=== PATIENT | male | born 1960 | race Caucasian/White ===

== ENCOUNTER 2017-05-09 03:09 | Inpatient (IN) | payer OTHER ==
[~2017-05-09] VITALS: Ht 162.6 cm; Wt 85.9 kg
[~2017-05-09 03:09] MED LIST: ATOR20 PO; CARI350 PO; CARV6.25 PO; CLON.5 PO; DIVA250ER PO; DIVA500ER PO; FURO20 PO; HYDACE5 PO; LANOXIN125 MCG PO; LISI5 PO; METF500C PO; OLAN10; OXYACE5T PO; PANT40 PO; QUET200 PO; QUET300 PO; RANI150; RANI150 PO; RXOXYACE PO; Seroquel Xr50 MG PO; TRAM50 PO; ZOLP5 PO
[2017-05-09 03:47] LABS: BASOPHILS ABSOLUTE AUTO 0.03 K/mm3 (0.00-0.23); BASOPHILS PERCENT AUTO 0 % (0-2); EOSINOPHILS ABSOLUTE AUTO 0.37 K/mm3 (0.00-0.68); EOSINOPHILS PERCENT AUTO 4 % (0-6); Hematocrit 37.1 % (37.0-53.0); Hemoglobin 12.6 g/dL (13.5-17.5); IMMATURE GRAN ABSOLUTE AUTO 0.02 K/mm3 (0.00-0.10); IMMATURE GRAN PERCENT AUTO 0 % (0-1); LYMPHOCYTES ABSOLUTE AUTO 2.76 K/mm3 (0.84-5.20); LYMPHOCYTES PERCENT AUTO 30 % (21-46); MONOCYTES PERCENT AUTO 10 % (4-13); Mean Corpuscular HGB 31.1 pg (26.0-34.0); Mean Corpuscular Volume 92 fL (80-100); Mean Platelet Volume 10.2 fL (9.1-12.4); NEUTROPHILS ABSOLUTE AUTO 5.05 K/mm3 (1.96-9.15); NEUTROPHILS PERCENT AUTO 55 % (41-73); Platelet Count 247 K/mm3 (150-400); Red Blood Cell Count 4.05 M/mm3 (4.30-5.90); White Blood Cell Count 9.13 K/mm3 (4.00-11.30)
[2017-05-09 04:09] LABS: Troponin I <0.015 ng/mL (0.000-0.040)
[2017-05-09 04:11] LABS: Alanine Aminotransfer (ALT/SGP 40 U/L (12-78); Albumin, Blood 3.4 g/dL (3.4-5.0); Alk Phos 67 U/L (50-136); Anion Gap 8 mmol/L (6-16); Aspartate Aminotrans (AST/SGOT 31 U/L (12-37); Bilirubin, Total 0.6 mg/dL (0.1-1.0); Blood Urea Nitrogen 18 mg/dL (8-24); Bun/Creatinine Ratio 26.5 (12.0-20.0); CO2, Blood 27 mmol/L (21-32); Chloride, Blood 104 mmol/L (98-108); Creatinine, Blood 0.68 mg/dL (0.60-1.20); Globulin, Blood 3.3 g/dL (2.2-4.0); Glomerular Filtration Rate >60 (60-); Glucose, Blood 124 mg/dL (70-99); Potassium, Blood 4.1 mmol/L (3.5-5.5); Sodium, Blood 139 mmol/L (136-145); Total Protein, Blood 6.7 g/dL (6.4-8.2)
[2017-05-09 05:43] LABS: Free Thyroxine 0.87 ng/dL (0.70-1.60)
[2017-05-09 05:50] LABS: Digoxin (Lanoxin) 0.09 ug/mL (0.80-2.00); Triiodothyronine, Free 3.28 pg/mL (2.18-3.98)
[2017-05-09 13:02] LABS: Source, Urine Clean Catch
[2017-05-09 13:24] LABS: Bilirubin, Urine Neg (Neg); Blood, Urine Neg (Neg); Glucose Qualitative, Urine Neg (Neg); Ketones, Urine Neg (Neg); Leukocyte Esterase, Urine Neg (Neg); Nitrite, Urine Neg (Neg); Protein, Urine Neg (Neg); Urobilinogen, Urine NORM (Normal); pH, Urine 6.5 (5.0-8.0)
[2017-05-09 13:54] LABS: U Amphetamine Screen Not Detected; U Barbituate Screen Not Detected; U Benzodiazapine Screen Not Detected; U Cannabinoids Screen Not Detected; U Cocaine Screen Not Detected; U Methadone Screen Not Detected; U Methamphetamine Screen Not Detected; U Opiates Screen Not Detected; U Phencyclidine Screen Not Detected
[2017-05-09 13:55] LABS: U Buprenorphine Screen Not Detected; U Oxycodone Screen Not Detected; U Propoxyphene Screen Not Detected
[2017-05-09 15:19] LABS: Appearance, Urine Clear (Clear); Color, Urine Yellow (P-Yellow)
[2017-05-11 05:45] LABS: BASOPHILS ABSOLUTE AUTO 0.07 K/mm3 (0.00-0.23); BASOPHILS PERCENT AUTO 1 % (0-2); EOSINOPHILS ABSOLUTE AUTO 0.45 K/mm3 (0.00-0.68); EOSINOPHILS PERCENT AUTO 5 % (0-6); Hematocrit 38.4 % (37.0-53.0); Hemoglobin 12.9 g/dL (13.5-17.5); IMMATURE GRAN ABSOLUTE AUTO 0.04 K/mm3 (0.00-0.10); IMMATURE GRAN PERCENT AUTO 1 % (0-1); LYMPHOCYTES ABSOLUTE AUTO 3.89 K/mm3 (0.84-5.20); LYMPHOCYTES PERCENT AUTO 44 % (21-46); MONOCYTES ABSOLUTE AUTO 0.82 K/mm3 (0.16-1.47); MONOCYTES PERCENT AUTO 9 % (4-13); Mean Corpuscular HGB 30.9 pg (26.0-34.0); Mean Corpuscular HGB Conc 33.6 g/dL (31.5-36.5); Mean Corpuscular Volume 92 fL (80-100); Mean Platelet Volume 10.1 fL (9.1-12.4); NEUTROPHILS ABSOLUTE AUTO 3.59 K/mm3 (1.96-9.15); NEUTROPHILS PERCENT AUTO 40 % (41-73); Platelet Count 241 K/mm3 (150-400); RDW Coefficient Variation 12.7 % (11.7-14.2); RDW Standard Deviation 42.9 fL (35.1-46.3); Red Blood Cell Count 4.17 M/mm3 (4.30-5.90); White Blood Cell Count 8.86 K/mm3 (4.00-11.30)
[2017-05-11 06:12] LABS: Anion Gap 6 mmol/L (6-16); Blood Urea Nitrogen 24 mg/dL (8-24); Bun/Creatinine Ratio 29.3 (12.0-20.0); CO2, Blood 29 mmol/L (21-32); Calcium, Blood 8.2 mg/dL (8.5-10.1); Chloride, Blood 104 mmol/L (98-108); Creatinine, Blood 0.82 mg/dL (0.60-1.20); Glomerular Filtration Rate >60 (60-); Glucose, Blood 92 mg/dL (70-99); Potassium, Blood 3.9 mmol/L (3.5-5.5); Sodium, Blood 139 mmol/L (136-145)
[2017-05-11 06:21] LABS: Digoxin (Lanoxin) 0.39 ug/mL (0.80-2.00)
[2017-05-12] MEDS ORDERED: DILT30 PO (11:58)
[2017-05-12] MEDS ORDERED: METO25ER PO (12:00)
[2017-05-12] MEDS ORDERED: XARELTO20 MG PO (12:02)
[2017-09-25] MEDS ORDERED: CYCL10 PO (13:57)
[2017-09-25] MEDS ORDERED: Norco 5-325 Ta1 EACH PO (13:57)
[2018-02-12] MEDS ORDERED: OLAN5 PO (17:03)
[2018-02-12] MEDS ORDERED: LIDO700A20 TOP (18:29)
[2018-02-12] MEDS ORDERED: ACETAMINOPHEN500 MG PO (18:29)
[2018-02-19] MEDS ORDERED: GABA100 (14:37)
[2018-02-19] MEDS ORDERED: QUET100 (14:37)
== END 2017-05-12 15:20 | disposition home or self-care (01) | DRG 309 ==
LOC: ER 03:09 → MEDS 03:10 → ER 03:28 → MEDS 03:49 → ENPENDDIS 05-12 10:45 → MEDS 05-12 15:20
PROVIDERS: Emergency Medicine; Family Medicine; Internal Medicine
DX: I48.91 Unspecified atrial fibrillation (principal); I50.32 Chronic diastolic (congestive) heart failure; I95.9 Hypotension, unspecified; E11.9 Type 2 diabetes mellitus without complications; F43.10 Post-traumatic stress disorder, unspecified; D64.9 Anemia, unspecified; Z79.84 Long term (current) use of oral hypoglycemic drugs; Z79.899 Other long term (current) drug therapy; Z87.891 Personal history of nicotine dependence
CPT/HCPCS: 36415; 71046; 74176; 80048; 80053; 80162; 81003; 82947; 83880; 84439; 84443; 84481; 84484; 85025; 85379; 93005; 93010; 93306; 97161; 99285; G0378; G8978; G8979; G8980; J7120

== ENCOUNTER 2017-09-23 07:39 | Emergency (ER) | payer OTHER ==
[~2017-09-23] VITALS: Ht 162.6 cm; Wt 104.3 kg
[~2017-09-23 07:39] MED LIST changes: +DILT30 PO; +METO25ER PO; +XARELTO20 MG PO
[2017-09-23] MEDS ORDERED: Naprosyn500 MG PO (08:27)
[2017-09-23] MEDS ORDERED: Seroquel400 MG PO (08:27)
[2017-09-25] MEDS ORDERED: Norco 5-325 Ta1 EACH PO (13:57)
[2017-09-25] MEDS ORDERED: CYCL10 PO (13:57)
== END 2017-09-23 08:55 | disposition home or self-care (01) ==
LOC: ER 07:39
DX: M54.5 Low back pain (principal); I11.0 Hypertensive heart disease with heart failure; I50.9 Heart failure, unspecified; Z79.899 Other long term (current) drug therapy; Z79.84 Long term (current) use of oral hypoglycemic drugs
CPT/HCPCS: 96372; 99283; J1885

== ENCOUNTER 2017-09-28 07:41 | Emergency (ER) | payer OTHER ==
[~2017-09-28] VITALS: Ht 162.6 cm; Wt 87.5 kg
[~2017-09-28 07:41] MED LIST changes: +CYCL10 PO; +Naprosyn500 MG PO; +Norco 5-325 Ta1 EACH PO; +Seroquel400 MG PO
[2017-09-28 08:35] LABS: Calcium, Ionized (POC) 1.11 mmol/L (1.10-1.46); Chloride (POC) 102 mmol/L (98-108); Glucose (ISTAT POC) 200 mg/dL (70-99); Hemoglobin (POC) 12.6 g/dL (13.5-17.5); Potassium (POC) 4.6 mmol/L (3.5-5.5); Sodium (POC) 136 mmol/L (135-148); Total CO2 (POC) 18 mmol/L (21-32)
[2017-09-28] MEDS ORDERED: ATOR20 PO (09:56)
[2017-09-28] MEDS ORDERED: METO25ER PO (09:56)
[2017-09-28] MEDS ORDERED: Naprosyn500 MG PO (09:56)
[2017-09-28] MEDS ORDERED: XARELTO20 MG PO (09:56)
[2017-09-28] MEDS ORDERED: QUET300 PO (09:56)
[2017-09-28] MEDS ORDERED: LANOXIN125 MCG PO (09:56)
[2017-09-28] MEDS ORDERED: DILT30 PO (09:56)
[2017-09-28] MEDS ORDERED: Seroquel400 MG PO (09:56)
[2017-09-28] MEDS ORDERED: CYCL10 PO (09:56)
[2017-09-28] MEDS ORDERED: METF500C PO (09:56)
[2017-09-28] MEDS ORDERED: PANT40 PO (09:56)
[2017-09-28] MEDS ORDERED: DIVA500ER PO (09:56)
[2017-09-28] MEDS ORDERED: Norco 5-325 Ta1 EACH PO (09:57)
== END 2017-09-28 10:15 | disposition home or self-care (01) ==
LOC: ER 07:41
PROVIDERS: Physician Assistant
DX: M54.40 Lumbago with sciatica, unspecified side (principal); R10.9 Unspecified abdominal pain; G89.29 Other chronic pain; E66.9 Obesity, unspecified; F20.9 Schizophrenia, unspecified; Z68.33 Body mass index [BMI] 33.0-33.9, adult; Z79.899 Other long term (current) drug therapy; Z79.84 Long term (current) use of oral hypoglycemic drugs; Z79.1 Long term (current) use of non-steroidal anti-inflammatories (NSAID); Z59.0 Homelessness; Z87.891 Personal history of nicotine dependence
CPT/HCPCS: 80047; 85014; C9113; J2405

== ENCOUNTER 2017-10-02 07:32 | Inpatient (IN) | payer OTHER ==
[~2017-10-02] VITALS: Ht 162.6 cm; Wt 97.4 kg
[2017-10-02 09:05] LABS: Source, Urine Clean Catch
[2017-10-02 09:08] LABS: BASOPHILS ABSOLUTE AUTO 0.09 K/mm3 (0.00-0.23); BASOPHILS PERCENT AUTO 1 % (0-2); EOSINOPHILS ABSOLUTE AUTO 0.03 K/mm3 (0.00-0.68); EOSINOPHILS PERCENT AUTO 0 % (0-6); Hematocrit 37.9 % (37.0-53.0); Hemoglobin 12.2 g/dL (13.5-17.5); IMMATURE GRAN ABSOLUTE AUTO 0.57 K/mm3 (0.00-0.10); IMMATURE GRAN PERCENT AUTO 4 % (0-1); LYMPHOCYTES ABSOLUTE AUTO 1.73 K/mm3 (0.84-5.20); LYMPHOCYTES PERCENT AUTO 13 % (21-46); MONOCYTES PERCENT AUTO 10 % (4-13); Mean Corpuscular HGB 30.7 pg (26.0-34.0); Mean Corpuscular HGB Conc 32.2 g/dL (31.5-36.5); Mean Corpuscular Volume 96 fL (80-100); Mean Platelet Volume 11.4 fL (9.1-12.4); NEUTROPHILS ABSOLUTE AUTO 9.29 K/mm3 (1.96-9.15); NEUTROPHILS PERCENT AUTO 71 % (41-73); NRBC ABSOLUTE 0.23 K/mm3 (0.00-0.02); NRBC Auto 1.8 /100 WBC (0.0-0.2); Platelet Count 175 K/mm3 (150-400); RDW Coefficient Variation 14.6 % (11.7-14.2); RDW Standard Deviation 49.6 fL (35.1-46.3); Red Blood Cell Count 3.97 M/mm3 (4.30-5.90); White Blood Cell Count 13.01 K/mm3 (4.00-11.30)
[2017-10-02 09:09] LABS: Bilirubin, Urine Neg (Neg); Blood, Urine 1+ (Neg); Glucose Qualitative, Urine Neg (Neg); Ketones, Urine Neg (Neg); Leukocyte Esterase, Urine Neg (Neg); Nitrite, Urine Neg (Neg); Protein, Urine 2+ (Neg); Urobilinogen, Urine 1+ (Normal)
[2017-10-02 09:23] LABS: U Amphetamine Screen Not Detected; U Barbituate Screen Not Detected; U Benzodiazapine Screen Not Detected; U Buprenorphine Screen Not Detected; U Cannabinoids Screen Not Detected; U Cocaine Screen Not Detected; U Methadone Screen Not Detected; U Methamphetamine Screen Not Detected; U Opiates Screen Not Detected; U Oxycodone Screen Not Detected; U Phencyclidine Screen Not Detected; U Propoxyphene Screen Not Detected
[2017-10-02 09:47] LABS: Digoxin (Lanoxin) 0.06 ug/mL (0.80-2.00)
[2017-10-02 09:48] LABS: Appearance, Urine Clear (Clear); Color, Urine Yellow (P-Yellow)
[2017-10-02 09:49] LABS: Alanine Aminotransfer (ALT/SGP 3412 U/L (12-78); Albumin, Blood 3.3 g/dL (3.4-5.0); Alk Phos 153 U/L (50-136); Anion Gap 13 mmol/L (6-16); Aspartate Aminotrans (AST/SGOT 1569 U/L (12-37); Bilirubin, Total 3.7 mg/dL (0.1-1.0); Blood Urea Nitrogen 55 mg/dL (8-24); Bun/Creatinine Ratio 50.5 (12.0-20.0); CO2, Blood 17 mmol/L (21-32); Calcium, Blood 7.9 mg/dL (8.5-10.1); Chloride, Blood 95 mmol/L (98-108); Creatinine, Blood 1.09 mg/dL (0.60-1.20); Globulin, Blood 3.3 g/dL (2.2-4.0); Glomerular Filtration Rate >60 (60-); Glucose, Blood 133 mg/dL (70-99); Potassium, Blood 5.5 mmol/L (3.5-5.5); Sodium, Blood 125 mmol/L (136-145); Total Protein, Blood 6.6 g/dL (6.4-8.2)
[2017-10-02 09:52] LABS: Bacteria Not Seen /hpf; Red Blood Cells, Urine 0-2 /hpf (0-2); Squamous Epithelial Cells Few /hpf (Few); White Blood Cells, Urine Rare /hpf (0-5)
[2017-10-02 09:53] LABS: Mucus Light (0-Heavy)
[2017-10-02 10:42] LABS: Acetaminophen, Random <2.0 ug/mL (10.0-30.0)
[2017-10-02 11:07] LABS: International Normalized Ratio 2.72; Prothrombin Time Results 29.2 Sec (9.7-11.5)
[2017-10-02 11:14] LABS: Ethanol (Alcohol), Blood, Med <3 mg/dL
[2017-10-02 15:01] LABS: Valproic Acid <3.0 ug/mL (50.0-100.0)
[2017-10-02 15:07] LABS: CPK Creatine Kinase 177 U/L (39-308); Salicylate <1.7 mg/dL (2.8-20.0)
[2017-10-02 15:13] LABS: Troponin I 0.028 ng/mL (0.000-0.040)
[2017-10-02 15:18] LABS: Digoxin (Lanoxin) <0.06 ug/mL (0.80-2.00)
[2017-10-02 21:34] LABS: International Normalized Ratio 2.79; Prothrombin Time Results 29.9 Sec (9.7-11.5)
[2017-10-02 21:47] LABS: Troponin I 0.021 ng/mL (0.000-0.040)
[2017-10-03 04:40] LABS: Hematocrit 34.3 % (37.0-53.0); Hemoglobin 11.4 g/dL (13.5-17.5); Mean Corpuscular HGB 30.8 pg (26.0-34.0); Mean Corpuscular HGB Conc 33.2 g/dL (31.5-36.5); Mean Corpuscular Volume 93 fL (80-100); Mean Platelet Volume 11.3 fL (9.1-12.4); NRBC ABSOLUTE 0.13 K/mm3 (0.00-0.02); Platelet Count 159 K/mm3 (150-400); RDW Coefficient Variation 14.6 % (11.7-14.2); RDW Standard Deviation 48.7 fL (35.1-46.3)
[2017-10-03 04:48] LABS: International Normalized Ratio 2.44
[2017-10-03 04:57] LABS: Albumin, Blood 2.8 g/dL (3.4-5.0); Albumin/Globulin Ratio 0.9 (0.8-1.8); Alk Phos 125 U/L (50-136); Anion Gap 10 mmol/L (6-16); Aspartate Aminotrans (AST/SGOT 868 U/L (12-37); Bilirubin, Total 2.8 mg/dL (0.1-1.0); Blood Urea Nitrogen 36 mg/dL (8-24); Bun/Creatinine Ratio 45.7 (12.0-20.0); CO2, Blood 22 mmol/L (21-32); Calcium, Blood 7.7 mg/dL (8.5-10.1); Chloride, Blood 97 mmol/L (98-108); Creatinine, Blood 0.79 mg/dL (0.60-1.20); Globulin, Blood 3.2 g/dL (2.2-4.0); Glomerular Filtration Rate >60 (60-); Glucose, Blood 114 mg/dL (70-99); Potassium, Blood 4.1 mmol/L (3.5-5.5); Sodium, Blood 129 mmol/L (136-145)
[2017-10-03 05:00] LABS: Prothrombin Time Results 26.1 Sec (9.7-11.5)
[2017-10-03 05:04] LABS: Alanine Aminotransfer (ALT/SGP 2592 U/L (12-78)
[2017-10-03 22:46] LABS: Albumin, Blood 2.7 g/dL (3.4-5.0); Albumin/Globulin Ratio 0.8 (0.8-1.8); Bilirubin, Indirect 1.4 mg/dL (0.1-0.7); Bilirubin, Total 2.4 mg/dL (0.1-1.0); Globulin, Blood 3.5 g/dL (2.2-4.0); Total Protein, Blood 6.2 g/dL (6.4-8.2)
[2017-10-04 04:05] LABS: BASOPHILS ABSOLUTE AUTO 0.08 K/mm3 (0.00-0.23); BASOPHILS PERCENT AUTO 1 % (0-2); EOSINOPHILS ABSOLUTE AUTO 0.34 K/mm3 (0.00-0.68); EOSINOPHILS PERCENT AUTO 3 % (0-6); Hematocrit 35.7 % (37.0-53.0); Hemoglobin 11.6 g/dL (13.5-17.5); IMMATURE GRAN ABSOLUTE AUTO 0.58 K/mm3 (0.00-0.10); IMMATURE GRAN PERCENT AUTO 5 % (0-1); LYMPHOCYTES PERCENT AUTO 20 % (21-46); MONOCYTES ABSOLUTE AUTO 1.77 K/mm3 (0.16-1.47); MONOCYTES PERCENT AUTO 15 % (4-13); Mean Corpuscular HGB 30.4 pg (26.0-34.0); Mean Corpuscular HGB Conc 32.5 g/dL (31.5-36.5); Mean Corpuscular Volume 94 fL (80-100); Mean Platelet Volume 10.5 fL (9.1-12.4); NEUTROPHILS ABSOLUTE AUTO 6.69 K/mm3 (1.96-9.15); NEUTROPHILS PERCENT AUTO 56 % (41-73); NRBC ABSOLUTE 0.09 K/mm3 (0.00-0.02); NRBC Auto 0.8 /100 WBC (0.0-0.2); Platelet Count 163 K/mm3 (150-400); RDW Coefficient Variation 14.7 % (11.7-14.2); RDW Standard Deviation 49.8 fL (35.1-46.3); Red Blood Cell Count 3.82 M/mm3 (4.30-5.90); White Blood Cell Count 11.86 K/mm3 (4.00-11.30)
[2017-10-04 04:29] LABS: Albumin, Blood 2.7 g/dL (3.4-5.0); Albumin/Globulin Ratio 0.8 (0.8-1.8); Alk Phos 125 U/L (50-136); Anion Gap 11 mmol/L (6-16); Aspartate Aminotrans (AST/SGOT 490 U/L (12-37); Bilirubin, Total 2.5 mg/dL (0.1-1.0); Blood Urea Nitrogen 28 mg/dL (8-24); Bun/Creatinine Ratio 36.3 (12.0-20.0); CO2, Blood 22 mmol/L (21-32); Calcium, Blood 7.5 mg/dL (8.5-10.1); Chloride, Blood 96 mmol/L (98-108); Creatinine, Blood 0.77 mg/dL (0.60-1.20); Globulin, Blood 3.5 g/dL (2.2-4.0); Glomerular Filtration Rate >60 (60-); Glucose, Blood 117 mg/dL (70-99); Potassium, Blood 3.9 mmol/L (3.5-5.5); Sodium, Blood 129 mmol/L (136-145); Total Protein, Blood 6.2 g/dL (6.4-8.2)
[2017-10-04 04:32] LABS: Alanine Aminotransfer (ALT/SGP 1986 U/L (12-78)
[2017-10-04 11:07] LABS: HBSAG SCREEN Negative (Negative); HEP A AB, IGM Negative (Negative); HEP B CORE AB, TOT Negative (Negative); HEP C VIRUS AB 0.2 (0.0-0.9)
[2017-10-04 12:12] LABS: International Normalized Ratio 1.96; Prothrombin Time Results 20.8 Sec (9.7-11.5)
[2017-10-04 14:32] LABS: Vancomycin, Trough 14.8 ug/mL (5.0-10.0)
[2017-10-05 04:16] LABS: BASOPHILS ABSOLUTE AUTO 0.06 K/mm3 (0.00-0.23); BASOPHILS PERCENT AUTO 1 % (0-2); EOSINOPHILS ABSOLUTE AUTO 0.59 K/mm3 (0.00-0.68); EOSINOPHILS PERCENT AUTO 5 % (0-6); Hematocrit 36.3 % (37.0-53.0); Hemoglobin 11.7 g/dL (13.5-17.5); IMMATURE GRAN PERCENT AUTO 3 % (0-1); LYMPHOCYTES ABSOLUTE AUTO 2.05 K/mm3 (0.84-5.20); LYMPHOCYTES PERCENT AUTO 18 % (21-46); MONOCYTES ABSOLUTE AUTO 1.51 K/mm3 (0.16-1.47); MONOCYTES PERCENT AUTO 13 % (4-13); Mean Corpuscular HGB Conc 32.2 g/dL (31.5-36.5); Mean Corpuscular Volume 93 fL (80-100); Mean Platelet Volume 10.6 fL (9.1-12.4); NEUTROPHILS ABSOLUTE AUTO 7.22 K/mm3 (1.96-9.15); NEUTROPHILS PERCENT AUTO 62 % (41-73); NRBC ABSOLUTE 0.02 K/mm3 (0.00-0.02); NRBC Auto 0.2 /100 WBC (0.0-0.2); Platelet Count 133 K/mm3 (150-400); RDW Coefficient Variation 14.8 % (11.7-14.2); White Blood Cell Count 11.73 K/mm3 (4.00-11.30)
[2017-10-05 04:32] LABS: International Normalized Ratio 1.72; Prothrombin Time Results 18.2 Sec (9.7-11.5)
[2017-10-05 04:39] LABS: Albumin, Blood 2.5 g/dL (3.4-5.0); Albumin/Globulin Ratio 0.8 (0.8-1.8); Alk Phos 111 U/L (50-136); Anion Gap 9 mmol/L (6-16); Aspartate Aminotrans (AST/SGOT 267 U/L (12-37); Bilirubin, Total 2.4 mg/dL (0.1-1.0); Blood Urea Nitrogen 22 mg/dL (8-24); Bun/Creatinine Ratio 30.4 (12.0-20.0); CO2, Blood 24 mmol/L (21-32); Calcium, Blood 7.6 mg/dL (8.5-10.1); Chloride, Blood 98 mmol/L (98-108); Creatinine, Blood 0.72 mg/dL (0.60-1.20); Globulin, Blood 3.1 g/dL (2.2-4.0); Glomerular Filtration Rate >60 (60-); Glucose, Blood 85 mg/dL (70-99); Potassium, Blood 3.9 mmol/L (3.5-5.5); Sodium, Blood 131 mmol/L (136-145); Total Protein, Blood 5.6 g/dL (6.4-8.2)
[2017-10-05 04:57] LABS: Alanine Aminotransfer (ALT/SGP 1370 U/L (12-78)
[2017-10-05 11:15] LABS: International Normalized Ratio 1.72; Prothrombin Time Results 18.2 Sec (9.7-11.5)
[2017-10-06 08:37] LABS: BASOPHILS ABSOLUTE AUTO 0.06 K/mm3 (0.00-0.23); BASOPHILS PERCENT AUTO 1 % (0-2); EOSINOPHILS ABSOLUTE AUTO 0.47 K/mm3 (0.00-0.68); EOSINOPHILS PERCENT AUTO 4 % (0-6); Hematocrit 40.8 % (37.0-53.0); Hemoglobin 12.9 g/dL (13.5-17.5); IMMATURE GRAN ABSOLUTE AUTO 0.21 K/mm3 (0.00-0.10); IMMATURE GRAN PERCENT AUTO 2 % (0-1); LYMPHOCYTES ABSOLUTE AUTO 1.43 K/mm3 (0.84-5.20); LYMPHOCYTES PERCENT AUTO 13 % (21-46); MONOCYTES ABSOLUTE AUTO 1.21 K/mm3 (0.16-1.47); MONOCYTES PERCENT AUTO 11 % (4-13); Mean Corpuscular HGB 30.4 pg (26.0-34.0); Mean Corpuscular HGB Conc 31.6 g/dL (31.5-36.5); Mean Platelet Volume 9.6 fL (9.1-12.4); NEUTROPHILS ABSOLUTE AUTO 7.91 K/mm3 (1.96-9.15); NEUTROPHILS PERCENT AUTO 70 % (41-73); Platelet Count 171 K/mm3 (150-400); RDW Standard Deviation 51.9 fL (35.1-46.3); Red Blood Cell Count 4.25 M/mm3 (4.30-5.90); White Blood Cell Count 11.29 K/mm3 (4.00-11.30)
[2017-10-06 08:38] LABS: Mean Corpuscular Volume 96 fL (80-100)
[2017-10-06 08:52] LABS: International Normalized Ratio 1.44; Prothrombin Time Results 15.1 Sec (9.7-11.5)
[2017-10-06 08:56] LABS: Alanine Aminotransfer (ALT/SGP 931 U/L (12-78); Albumin, Blood 2.3 g/dL (3.4-5.0); Albumin/Globulin Ratio 0.7 (0.8-1.8); Alk Phos 113 U/L (50-136); Anion Gap 9 mmol/L (6-16); Aspartate Aminotrans (AST/SGOT 141 U/L (12-37); Bilirubin, Total 1.8 mg/dL (0.1-1.0); Blood Urea Nitrogen 15 mg/dL (8-24); Bun/Creatinine Ratio 18.6 (12.0-20.0); CO2, Blood 24 mmol/L (21-32); Calcium, Blood 7.8 mg/dL (8.5-10.1); Chloride, Blood 104 mmol/L (98-108); Creatinine, Blood 0.81 mg/dL (0.60-1.20); Globulin, Blood 3.3 g/dL (2.2-4.0); Glomerular Filtration Rate >60 (60-); Glucose, Blood 156 mg/dL (70-99); Potassium, Blood 3.8 mmol/L (3.5-5.5); Sodium, Blood 137 mmol/L (136-145); Total Protein, Blood 5.6 g/dL (6.4-8.2)
[2017-10-07 06:29] LABS: Albumin, Blood 2.3 g/dL (3.4-5.0); Albumin/Globulin Ratio 0.7 (0.8-1.8); Bilirubin, Direct 0.6 mg/dL (0.0-0.3); Bilirubin, Indirect 1.1 mg/dL (0.1-0.7); Bilirubin, Total 1.7 mg/dL (0.1-1.0); Globulin, Blood 3.3 g/dL (2.2-4.0); Total Protein, Blood 5.6 g/dL (6.4-8.2)
[2017-10-08] MEDS ORDERED: NYSTATIN1 EAC1 TOP (13:24)
[2017-10-08] MEDS ORDERED: OXYC5 PO (13:24)
== END 2017-10-09 13:20 | disposition home health service (06) | DRG 441 ==
LOC: ER 07:32 → ERHOLD 13:12 → PCU 13:12 → MEDS 10-07 15:40 → EDPENDDIS 10-08 09:25 → ENPENDDIS 10-08 09:25 → EDPENDDISDT 10-09 13:06 → EDPENDDIS 10-09 13:06 → EDPENDDISTM 10-09 13:06 → MEDS 10-09 13:20
PROVIDERS: Emergency Medicine; Hospitalist; Internal Medicine; Pharmacist
DX: K71.10 Toxic liver disease with hepatic necrosis, without coma (principal); I50.33 Acute on chronic diastolic (congestive) heart failure; T40.2X5A Adverse effect of other opioids, initial encounter; T39.015A Adverse effect of aspirin, initial encounter; T39.1X5A Adverse effect of 4-Aminophenol derivatives, initial encounter; T39.315A Adverse effect of propionic acid derivatives, initial encounter; I48.91 Unspecified atrial fibrillation; Z79.01 Long term (current) use of anticoagulants; E11.9 Type 2 diabetes mellitus without complications; F43.10 Post-traumatic stress disorder, unspecified; F31.9 Bipolar disorder, unspecified
CPT/HCPCS: 36415; 70450; 71045; 74177; 76705; 80053; 80076; 80162; 80164; 80202; 81001; 82140; 82550; 82947; 83605; 83690; 83880; 84450; 84460; 84484; 85025; 85027; 85610; 85730; 86704; 86708; 86803; 87040; 87340; 93005; 93010; 94640; 94762; 96365; 96366; 96368; 96375; 96376; 97110; 97116; 97161; 97166; 97530; 97535; 99285; C1751; C9113; G0480; G8978; G8979; G8987; G8988; J0132; J0696; J0744; J1940; J3010; J3370; J7030; J7050; J7060; J7070; Q9967

== ENCOUNTER 2017-10-16 07:35 | Inpatient (IN) | payer OTHER ==
[~2017-10-16] VITALS: Ht 162.6 cm; Wt 87.3 kg
[~2017-10-16 07:35] MED LIST changes: +NYSTATIN1 EAC1 TOP; +OXYC5 PO
[2017-10-16 09:11] LABS: BASOPHILS ABSOLUTE AUTO 0.09 K/mm3 (0.00-0.23); BASOPHILS PERCENT AUTO 1 % (0-2); EOSINOPHILS ABSOLUTE AUTO 0.08 K/mm3 (0.00-0.68); EOSINOPHILS PERCENT AUTO 1 % (0-6); Hematocrit 41.4 % (37.0-53.0); Hemoglobin 13.4 g/dL (13.5-17.5); IMMATURE GRAN ABSOLUTE AUTO 0.09 K/mm3 (0.00-0.10); IMMATURE GRAN PERCENT AUTO 1 % (0-1); LYMPHOCYTES ABSOLUTE AUTO 2.35 K/mm3 (0.84-5.20); LYMPHOCYTES PERCENT AUTO 19 % (21-46); MONOCYTES ABSOLUTE AUTO 0.96 K/mm3 (0.16-1.47); MONOCYTES PERCENT AUTO 8 % (4-13); Mean Corpuscular HGB 29.6 pg (26.0-34.0); Mean Corpuscular HGB Conc 32.4 g/dL (31.5-36.5); Mean Corpuscular Volume 92 fL (80-100); Mean Platelet Volume 10.7 fL (9.1-12.4); NEUTROPHILS ABSOLUTE AUTO 8.61 K/mm3 (1.96-9.15); NEUTROPHILS PERCENT AUTO 71 % (41-73); Platelet Count 303 K/mm3 (150-400); RDW Coefficient Variation 14.6 % (11.7-14.2); RDW Standard Deviation 48.9 fL (35.1-46.3); Red Blood Cell Count 4.52 M/mm3 (4.30-5.90); White Blood Cell Count 12.18 K/mm3 (4.00-11.30)
[2017-10-16 09:34] LABS: Troponin I <0.015 ng/mL (0.000-0.040)
[2017-10-16 09:43] LABS: Digoxin (Lanoxin) 0.21 ug/mL (0.80-2.00)
[2017-10-16 09:44] LABS: Alanine Aminotransfer (ALT/SGP 137 U/L (12-78); Albumin, Blood 3.2 g/dL (3.4-5.0); Albumin/Globulin Ratio 0.7 (0.8-1.8); Alk Phos 102 U/L (50-136); Anion Gap 12 mmol/L (6-16); Aspartate Aminotrans (AST/SGOT 48 U/L (12-37); Bilirubin, Total 1.1 mg/dL (0.1-1.0); Blood Urea Nitrogen 20 mg/dL (8-24); Bun/Creatinine Ratio 22.8 (12.0-20.0); CO2, Blood 23 mmol/L (21-32); Calcium, Blood 8.5 mg/dL (8.5-10.1); Chloride, Blood 101 mmol/L (98-108); Creatinine, Blood 0.88 mg/dL (0.60-1.20); Globulin, Blood 4.4 g/dL (2.2-4.0); Glomerular Filtration Rate >60 (60-); Glucose, Blood 101 mg/dL (70-99); Potassium, Blood 4.5 mmol/L (3.5-5.5); Sodium, Blood 136 mmol/L (136-145); Total Protein, Blood 7.6 g/dL (6.4-8.2)
[2017-10-16 09:46] LABS: Performing Lab VAMCL; Test Name PT INR
[2017-10-16 15:26] LABS: Magnesium, Blood 1.8 mg/dL (1.6-2.4)
[2017-10-16 15:27] LABS: Free Thyroxine 1.47 ng/dL (0.70-1.60); Thyroid Stimulating Hormone 2.24 uIU/mL (0.360-4.800)
[2017-10-16 20:41] LABS: U Amphetamine Screen Not Detected; U Barbituate Screen Not Detected; U Benzodiazapine Screen Not Detected; U Buprenorphine Screen Not Detected; U Cannabinoids Screen Not Detected; U Cocaine Screen Not Detected; U Methadone Screen Not Detected; U Methamphetamine Screen Not Detected; U Opiates Screen Not Detected; U Oxycodone Screen Not Detected; U Phencyclidine Screen Not Detected; U Propoxyphene Screen Not Detected
[2017-10-17 05:42] LABS: Magnesium, Blood 1.5 mg/dL (1.6-2.4)
[2017-10-17 05:43] LABS: Alanine Aminotransfer (ALT/SGP 107 U/L (12-78); Albumin, Blood 2.7 g/dL (3.4-5.0); Albumin/Globulin Ratio 0.7 (0.8-1.8); Alk Phos 84 U/L (50-136); Anion Gap 12 mmol/L (6-16); Aspartate Aminotrans (AST/SGOT 39 U/L (12-37); Bilirubin, Total 1.1 mg/dL (0.1-1.0); Blood Urea Nitrogen 20 mg/dL (8-24); Bun/Creatinine Ratio 23.3 (12.0-20.0); CO2, Blood 21 mmol/L (21-32); Calcium, Blood 7.8 mg/dL (8.5-10.1); Chloride, Blood 105 mmol/L (98-108); Creatinine, Blood 0.86 mg/dL (0.60-1.20); Globulin, Blood 3.7 g/dL (2.2-4.0); Glomerular Filtration Rate >60 (60-); Glucose, Blood 101 mg/dL (70-99); Potassium, Blood 4.1 mmol/L (3.5-5.5); Sodium, Blood 138 mmol/L (136-145); Total Protein, Blood 6.4 g/dL (6.4-8.2)
[2017-10-18 04:06] LABS: BASOPHILS ABSOLUTE AUTO 0.06 K/mm3 (0.00-0.23); BASOPHILS PERCENT AUTO 1 % (0-2); EOSINOPHILS PERCENT AUTO 1 % (0-6); Hematocrit 35.2 % (37.0-53.0); Hemoglobin 11.6 g/dL (13.5-17.5); IMMATURE GRAN ABSOLUTE AUTO 0.06 K/mm3 (0.00-0.10); IMMATURE GRAN PERCENT AUTO 1 % (0-1); LYMPHOCYTES ABSOLUTE AUTO 2.71 K/mm3 (0.84-5.20); LYMPHOCYTES PERCENT AUTO 24 % (21-46); MONOCYTES ABSOLUTE AUTO 1.08 K/mm3 (0.16-1.47); MONOCYTES PERCENT AUTO 10 % (4-13); Mean Corpuscular HGB 30.4 pg (26.0-34.0); Mean Corpuscular Volume 92 fL (80-100); Mean Platelet Volume 10.4 fL (9.1-12.4); NEUTROPHILS ABSOLUTE AUTO 7.13 K/mm3 (1.96-9.15); NEUTROPHILS PERCENT AUTO 64 % (41-73); Platelet Count 280 K/mm3 (150-400); RDW Coefficient Variation 14.9 % (11.7-14.2); RDW Standard Deviation 50.2 fL (35.1-46.3); Red Blood Cell Count 3.81 M/mm3 (4.30-5.90); White Blood Cell Count 11.14 K/mm3 (4.00-11.30)
[2017-10-18 04:25] LABS: Alanine Aminotransfer (ALT/SGP 89 U/L (12-78); Albumin, Blood 2.8 g/dL (3.4-5.0); Albumin/Globulin Ratio 0.8 (0.8-1.8); Alk Phos 84 U/L (50-136); Anion Gap 11 mmol/L (6-16); Aspartate Aminotrans (AST/SGOT 32 U/L (12-37); Bilirubin, Total 0.6 mg/dL (0.1-1.0); Blood Urea Nitrogen 28 mg/dL (8-24); Bun/Creatinine Ratio 26.4 (12.0-20.0); CO2, Blood 26 mmol/L (21-32); Chloride, Blood 103 mmol/L (98-108); Creatinine, Blood 1.06 mg/dL (0.60-1.20); Globulin, Blood 3.6 g/dL (2.2-4.0); Glomerular Filtration Rate >60 (60-); Glucose, Blood 92 mg/dL (70-99); Magnesium, Blood 1.7 mg/dL (1.6-2.4); Potassium, Blood 3.6 mmol/L (3.5-5.5); Sodium, Blood 140 mmol/L (136-145); Total Protein, Blood 6.4 g/dL (6.4-8.2)
[2017-10-19 06:30] LABS: Hematocrit 36.2 % (37.0-53.0)
[2017-10-19 06:47] LABS: Anion Gap 10 mmol/L (6-16); Blood Urea Nitrogen 29 mg/dL (8-24); Bun/Creatinine Ratio 28.7 (12.0-20.0); CO2, Blood 28 mmol/L (21-32); Calcium, Blood 8.1 mg/dL (8.5-10.1); Chloride, Blood 101 mmol/L (98-108); Creatinine, Blood 1.01 mg/dL (0.60-1.20); Glomerular Filtration Rate >60 (60-); Glucose, Blood 92 mg/dL (70-99); Magnesium, Blood 1.8 mg/dL (1.6-2.4); Potassium, Blood 3.5 mmol/L (3.5-5.5); Sodium, Blood 139 mmol/L (136-145)
[2017-10-20] MEDS ORDERED: LANOXIN125 MCG PO (10:45)
[2017-10-20] MEDS ORDERED: DILT120 PO (10:45)
[2017-10-20] MEDS ORDERED: FURO40 PO (10:46)
[2017-10-20] MEDS ORDERED: DOCU100 PO (10:46)
[2017-10-20] MEDS ORDERED: ALBU90OI6 INH (10:48)
[2017-10-20] MEDS ORDERED: METO10 PO (10:49)
[2017-10-20] MEDS ORDERED: METO50 PO (10:50)
[2017-10-20] MEDS ORDERED: PANT40 PO (10:51)
[2017-10-20] MEDS ORDERED: XARELTO20 MG PO (10:52)
== END 2017-10-20 11:34 | disposition home or self-care (01) | DRG 872 ==
LOC: ER 07:35 → PCU 11:17 → MEDS 11:17 → PCU 12:35 → MEDS 12:47 → PCU 18:10
PROVIDERS: Family Medicine; Internal Medicine; Physician Assistant
DX: A41.9 Sepsis, unspecified organism (principal); I50.42 Chronic combined systolic (congestive) and diastolic (congestive) heart failure; I11.0 Hypertensive heart disease with heart failure; K72.90 Hepatic failure, unspecified without coma; K21.9 Gastro-esophageal reflux disease without esophagitis; G89.29 Other chronic pain; G31.84 Mild cognitive impairment of uncertain or unknown etiology; K59.00 Constipation, unspecified; E66.9 Obesity, unspecified; G47.30 Sleep apnea, unspecified; E16.2 Hypoglycemia, unspecified; D64.9 Anemia, unspecified; Z79.01 Long term (current) use of anticoagulants; Z90.49 Acquired absence of other specified parts of digestive tract; Z91.14 Patient's other noncompliance with medication regimen; Z79.899 Other long term (current) drug therapy; Z87.891 Personal history of nicotine dependence; Z68.30 Body mass index [BMI] 30.0-30.9, adult
CPT/HCPCS: 36415; 71046; 76700; 80048; 80053; 80162; 82140; 82947; 83605; 83735; 83880; 84439; 84443; 84484; 85014; 85018; 85025; 85610; 93005; 93010; 94640; 94760; 94762; 96365; 96366; 99285; C9113; J0696; J1940; J3475; J7030

== ENCOUNTER 2017-10-26 07:33 | Inpatient (IN) | payer OTHER ==
[~2017-10-26] VITALS: Ht 162.6 cm; Wt 89.5 kg
[~2017-10-26 07:33] MED LIST changes: +ALBU90OI6 INH; +DILT120 PO; +DOCU100 PO; +FURO40 PO; +METO10 PO; +METO50 PO
[2017-10-26 08:54] LABS: BASOPHILS ABSOLUTE AUTO 0.09 K/mm3 (0.00-0.23); BASOPHILS PERCENT AUTO 1 % (0-2); EOSINOPHILS ABSOLUTE AUTO 0.12 K/mm3 (0.00-0.68); EOSINOPHILS PERCENT AUTO 1 % (0-6); Hematocrit 38.2 % (37.0-53.0); Hemoglobin 12.4 g/dL (13.5-17.5); IMMATURE GRAN PERCENT AUTO 1 % (0-1); LYMPHOCYTES PERCENT AUTO 18 % (21-46); MONOCYTES ABSOLUTE AUTO 1.45 K/mm3 (0.16-1.47); MONOCYTES PERCENT AUTO 13 % (4-13); Mean Corpuscular HGB 29.5 pg (26.0-34.0); Mean Corpuscular HGB Conc 32.5 g/dL (31.5-36.5); Mean Corpuscular Volume 91 fL (80-100); Mean Platelet Volume 10.1 fL (9.1-12.4); NEUTROPHILS PERCENT AUTO 67 % (41-73); Platelet Count 324 K/mm3 (150-400); RDW Coefficient Variation 14.7 % (11.7-14.2); RDW Standard Deviation 49.2 fL (35.1-46.3); White Blood Cell Count 11.46 K/mm3 (4.00-11.30)
[2017-10-26 09:04] LABS: International Normalized Ratio 1.24; Prothrombin Time Results 12.6 Sec (9.7-11.5)
[2017-10-26 09:14] LABS: Alanine Aminotransfer (ALT/SGP 54 U/L (12-78); Albumin, Blood 3.1 g/dL (3.4-5.0); Albumin/Globulin Ratio 0.8 (0.8-1.8); Alk Phos 103 U/L (50-136); Anion Gap 9 mmol/L (6-16); Aspartate Aminotrans (AST/SGOT 40 U/L (12-37); Bilirubin, Total 0.5 mg/dL (0.1-1.0); Blood Urea Nitrogen 19 mg/dL (8-24); Bun/Creatinine Ratio 25.1 (12.0-20.0); CO2, Blood 24 mmol/L (21-32); Calcium, Blood 8.5 mg/dL (8.5-10.1); Chloride, Blood 107 mmol/L (98-108); Creatinine, Blood 0.76 mg/dL (0.60-1.20); Globulin, Blood 3.9 g/dL (2.2-4.0); Glomerular Filtration Rate >60 (60-); Glucose, Blood 129 mg/dL (70-99); Potassium, Blood 4.1 mmol/L (3.5-5.5); Sodium, Blood 140 mmol/L (136-145); Troponin I <0.015 ng/mL (0.000-0.040)
[2017-10-26 09:21] LABS: Digoxin (Lanoxin) 0.18 ug/mL (0.80-2.00)
[2017-10-27] MEDS ORDERED: FURO80 PO (12:37)
[2017-10-27] MEDS ORDERED: LIDO700A20 TOP (12:40)
[2017-10-27] MEDS ORDERED: CARV6.25 PO (12:41)
[2017-10-27] MEDS ORDERED: SPIR25 PO (12:42)
== END 2017-10-27 13:46 | disposition home or self-care (01) | DRG 309 ==
LOC: ER 07:33 → PCU 11:35
PROVIDERS: Emergency Medicine
DX: I48.2 Chronic atrial fibrillation (principal); I50.42 Chronic combined systolic (congestive) and diastolic (congestive) heart failure; I07.1 Rheumatic tricuspid insufficiency; M54.9 Dorsalgia, unspecified; I11.0 Hypertensive heart disease with heart failure; G89.29 Other chronic pain; M54.5 Low back pain; E11.9 Type 2 diabetes mellitus without complications; K21.9 Gastro-esophageal reflux disease without esophagitis; F20.9 Schizophrenia, unspecified; F41.9 Anxiety disorder, unspecified; Z79.899 Other long term (current) drug therapy; Z79.01 Long term (current) use of anticoagulants; Z87.891 Personal history of nicotine dependence; Z59.0 Homelessness
CPT/HCPCS: 36415; 71045; 80053; 80162; 83880; 84484; 85025; 85610; 93005; 93010; 93308; 93321; 96365; 96366; 96375; 96376; 99285; J1160; J1885

== ENCOUNTER 2017-11-04 07:39 | Inpatient (IN) | payer OTHER ==
[~2017-11-04] VITALS: Ht 162.6 cm; Wt 94.3 kg
[~2017-11-04 07:39] MED LIST changes: +FURO80 PO; +LIDO700A20 TOP; +SPIR25 PO
[2017-11-04 07:50] LABS: PO2 Arterial 124 mmHg (80-100); pH Blood Arterial 7.17 (7.35-7.45)
[2017-11-04 07:51] LABS: PCO2 Arterial 11.7 mmHg (35-45)
[2017-11-04 08:10] LABS: Calcium, Ionized (POC) 1.05 mmol/L (1.10-1.46); Chloride (POC) 99 mmol/L (98-108); Creatinine (POC) 1.3 mg/dL (0.8-1.3); Glucose (ISTAT POC) 75 mg/dL (70-99); Hemoglobin (POC) 13.9 g/dL (13.5-17.5); Sodium (POC) 131 mmol/L (135-148); Total CO2 (POC) 9 mmol/L (21-32)
[2017-11-04 08:26] LABS: BASOPHILS ABSOLUTE AUTO 0.07 K/mm3 (0.00-0.23); BASOPHILS PERCENT AUTO 0 % (0-2); EOSINOPHILS ABSOLUTE AUTO 0.01 K/mm3 (0.00-0.68); EOSINOPHILS PERCENT AUTO 0 % (0-6); Hematocrit 40.6 % (37.0-53.0); Hemoglobin 12.5 g/dL (13.5-17.5); IMMATURE GRAN ABSOLUTE AUTO 0.63 K/mm3 (0.00-0.10); IMMATURE GRAN PERCENT AUTO 4 % (0-1); LYMPHOCYTES ABSOLUTE AUTO 1.83 K/mm3 (0.84-5.20); LYMPHOCYTES PERCENT AUTO 11 % (21-46); MONOCYTES ABSOLUTE AUTO 1.29 K/mm3 (0.16-1.47); MONOCYTES PERCENT AUTO 8 % (4-13); Mean Corpuscular HGB 29.4 pg (26.0-34.0); Mean Corpuscular HGB Conc 30.8 g/dL (31.5-36.5); Mean Platelet Volume 10.6 fL (9.1-12.4); NEUTROPHILS ABSOLUTE AUTO 13.05 K/mm3 (1.96-9.15); NEUTROPHILS PERCENT AUTO 77 % (41-73); NRBC ABSOLUTE 0.02 K/mm3 (0.00-0.02); NRBC Auto 0.1 /100 WBC (0.0-0.2); Platelet Count 288 K/mm3 (150-400); RDW Coefficient Variation 15.4 % (11.7-14.2); RDW Standard Deviation 53.5 fL (35.1-46.3); Red Blood Cell Count 4.25 M/mm3 (4.30-5.90); White Blood Cell Count 16.88 K/mm3 (4.00-11.30)
[2017-11-04 08:34] LABS: Acetaminophen, Random 25.8 ug/mL (10.0-30.0); CPK Creatine Kinase 84 U/L (39-308); Ethanol (Alcohol), Blood, Med <3 mg/dL
[2017-11-04 08:35] LABS: Troponin I 0.023 ng/mL (0.000-0.040)
[2017-11-04 08:37] LABS: Mean Corpuscular Volume 96 fL (80-100)
[2017-11-04 08:41] LABS: Salicylate <1.7 mg/dL (2.8-20.0)
[2017-11-04 08:47] LABS: Alanine Aminotransfer (ALT/SGP 154 U/L (12-78); Albumin, Blood 3.3 g/dL (3.4-5.0); Albumin/Globulin Ratio 0.8 (0.8-1.8); Alk Phos 88 U/L (50-136); Anion Gap 28 mmol/L (6-16); Aspartate Aminotrans (AST/SGOT 197 U/L (12-37); Blood Urea Nitrogen 26 mg/dL (8-24); CO2, Blood 7 mmol/L (21-32); Calcium, Blood 8.8 mg/dL (8.5-10.1); Chloride, Blood 97 mmol/L (98-108); Creatinine, Blood 1.13 mg/dL (0.60-1.20); Globulin, Blood 4.3 g/dL (2.2-4.0); Glomerular Filtration Rate >60 (60-); Glucose, Blood 72 mg/dL (70-99); Potassium, Blood 4.1 mmol/L (3.5-5.5); Sodium, Blood 132 mmol/L (136-145); Total Protein, Blood 7.6 g/dL (6.4-8.2)
[2017-11-04 11:22] LABS: BASOPHILS ABSOLUTE AUTO 0.05 K/mm3 (0.00-0.23); BASOPHILS PERCENT AUTO 1 % (0-2); EOSINOPHILS PERCENT AUTO 0 % (0-6); Hematocrit 39.1 % (37.0-53.0); Hemoglobin 12.5 g/dL (13.5-17.5); IMMATURE GRAN ABSOLUTE AUTO 0.45 K/mm3 (0.00-0.10); IMMATURE GRAN PERCENT AUTO 4 % (0-1); LYMPHOCYTES ABSOLUTE AUTO 1.65 K/mm3 (0.84-5.20); LYMPHOCYTES PERCENT AUTO 15 % (21-46); MONOCYTES ABSOLUTE AUTO 0.78 K/mm3 (0.16-1.47); MONOCYTES PERCENT AUTO 7 % (4-13); Mean Corpuscular HGB 29.8 pg (26.0-34.0); Mean Platelet Volume 10.6 fL (9.1-12.4); NEUTROPHILS PERCENT AUTO 73 % (41-73); NRBC ABSOLUTE 0.02 K/mm3 (0.00-0.02); NRBC Auto 0.2 /100 WBC (0.0-0.2); Platelet Count 315 K/mm3 (150-400); RDW Coefficient Variation 15.5 % (11.7-14.2); RDW Standard Deviation 52.1 fL (35.1-46.3); Red Blood Cell Count 4.19 M/mm3 (4.30-5.90); White Blood Cell Count 10.83 K/mm3 (4.00-11.30)
[2017-11-04 11:34] LABS: Mean Corpuscular Volume 93 fL (80-100)
[2017-11-04 12:05] LABS: Magnesium, Blood 1.7 mg/dL (1.6-2.4)
[2017-11-04 12:35] LABS: Alanine Aminotransfer (ALT/SGP 235 U/L (12-78); Albumin, Blood 3.2 g/dL (3.4-5.0); Albumin/Globulin Ratio 0.8 (0.8-1.8); Alk Phos 82 U/L (50-136); Anion Gap 27 mmol/L (6-16); Aspartate Aminotrans (AST/SGOT 328 U/L (12-37); Bilirubin, Total 2.7 mg/dL (0.1-1.0); Blood Urea Nitrogen 28 mg/dL (8-24); Bun/Creatinine Ratio 26.7 (12.0-20.0); CO2, Blood 8 mmol/L (21-32); Calcium, Blood 8.3 mg/dL (8.5-10.1); Chloride, Blood 98 mmol/L (98-108); Creatinine, Blood 1.05 mg/dL (0.60-1.20); Globulin, Blood 4.1 g/dL (2.2-4.0); Glomerular Filtration Rate >60 (60-); Glucose, Blood 114 mg/dL (70-99); Phosphorus, Blood 5.5 mg/dL (2.5-4.9); Potassium, Blood 4.1 mmol/L (3.5-5.5); Sodium, Blood 133 mmol/L (136-145); Total Protein, Blood 7.3 g/dL (6.4-8.2)
[2017-11-04 16:15] LABS: PCO2 Arterial 45.9 mmHg (35-45); PO2 Arterial 154 mmHg (80-100); pH Blood Arterial 7.14 (7.35-7.45)
[2017-11-04 17:03] LABS: PCO2 Arterial 39.5 mmHg (35-45); PO2 Arterial 228 mmHg (80-100); pH Blood Arterial 7.22 (7.35-7.45)
[2017-11-04 17:43] LABS: PCO2 Arterial 42.9 mmHg (35-45); PO2 Arterial 256 mmHg (80-100); pH Blood Arterial 7.26 (7.35-7.45)
[2017-11-04 18:09] LABS: Anion Gap 14 mmol/L (6-16); Blood Urea Nitrogen 34 mg/dL (8-24); Bun/Creatinine Ratio 27.4 (12.0-20.0); CO2, Blood 19 mmol/L (21-32); Calcium, Blood 8.5 mg/dL (8.5-10.1); Chloride, Blood 105 mmol/L (98-108); Creatinine, Blood 1.24 mg/dL (0.60-1.20); Glomerular Filtration Rate >60 (60-); Glucose, Blood 133 mg/dL (70-99); Potassium, Blood 3.6 mmol/L (3.5-5.5); Sodium, Blood 138 mmol/L (136-145)
== END 2017-11-04 20:05 | disposition short-term general hospital (02) | DRG 853 ==
LOC: ER 07:39 → ICUW 09:17 → ICUE 09:17
PROVIDERS: Anesthesiology; Emergency Medicine; Internal Medicine Critical Care Medicine; Surgery
PROC: 0DBU0ZZ Excision of Omentum, Open Approach (ICD-10-PCS; 2017-11-04)
PROC: 03HC33Z Insertion of Infusion Device into Left Radial Artery, Percutaneous Approach (ICD-10-PCS; 2017-11-04)
PROC: 0D9900Z Drainage of Duodenum with Drainage Device, Open Approach (ICD-10-PCS; principal; 2017-11-04 13:30)
DX: A41.9 Sepsis, unspecified organism (principal); R65.21 Severe sepsis with septic shock; K26.5 Chronic or unspecified duodenal ulcer with perforation; E87.2 Acidosis; I11.0 Hypertensive heart disease with heart failure; I50.9 Heart failure, unspecified; I48.2 Chronic atrial fibrillation; K74.60 Unspecified cirrhosis of liver; R73.03 Prediabetes; K21.9 Gastro-esophageal reflux disease without esophagitis; K42.9 Umbilical hernia without obstruction or gangrene; Z79.01 Long term (current) use of anticoagulants; Z87.891 Personal history of nicotine dependence; Z79.899 Other long term (current) drug therapy; Z90.49 Acquired absence of other specified parts of digestive tract; Z79.1 Long term (current) use of non-steroidal anti-inflammatories (NSAID)
CPT/HCPCS: 31500; 36415; 36600; 36620; 51702; 71046; 74176; 80047; 80048; 80053; 82010; 82330; 82435; 82550; 82803; 83605; 83690; 83735; 83930; 84100; 84132; 84295; 84484; 85014; 85025; 86850; 86900; 86901; 93005; 93010; 94002; 94660; 96361; 96374; 96375; 99285-25; G0480; J0330; J0692; J2250; J2370; J2405; J3010; J3370; J7030; J7050; J7070; J7120

== ENCOUNTER 2018-01-22 11:04 | Emergency (ER) | payer OTHER ==
[~2018-01-22] VITALS: Ht 162.6 cm; Wt 81.7 kg
== END 2018-01-22 11:45 | disposition left against medical advice (07) ==
LOC: ER 11:04
DX: Z53.21 Procedure and treatment not carried out due to patient leaving prior to being seen by health care provider (principal)